=== PATIENT | male | born 1970 | race Caucasian/White ===

== ENCOUNTER 2024-09-03 08:22 | Emergency (ER) | payer OTHER, SELFPAY ==
[2024-09-03 08:31] VITALS: BP 170/101
--- NOTE | 2024-09-03 11:01 | ED.GENMED ---
History of Present Illness
General
Chief Complaint: Back Pain
Source: patient
Exam Limitations: none
Time Seen by Provider: 09/03/24 10:49
History of Present Illness
History of Present Illness:
Low back pain this started about 4 days ago. Seem to get better however instantly got worse with coughing on . Points to the right lower back. No numbness tingling or weakness. No bowel or bladder issues. No fever. No abdominal
pain. No urinary symptoms. Very positional in nature.
Past History
Past History
ED Past Medical History: None
ED Past Surgical History: Cholecystectomy
Review of Systems
Review of Systems
All Other Systems: Not applicable
Constitutional: Denies fever
Phy Exam
Physical Exam
Physical Exam:
GENERAL: Alert and oriented in no apparent distress
EYE: Orbits normal.
NECK: Supple
CARDIAC: Regular rate and rhythm
LUNGS: No respiratory distress
ABDOMEN: Soft, without focal tenderness or distention
NEUROLOGICAL: Alert and oriented , grossly non-focal
SKIN: Warm and dry, no rash or lesion, no discoloration, skin intact.
MUSCULOSKELETAL: No edema,no deformity.Good color. No spinal tenderness. Area of pain is right sacroiliac area. However no point tenderness. Able to stand but winces with sitting up. Able to ambulate. Able to walk on toes. Decreased flexion
of the hip. Negative straight leg raising. Good distal pulses and color. Good lower extremity strength.
PSYCH: Normal and appropriate interaction.
Course
Orders/Labs/Results
Orders:
Orders
09/03/24 11:00
Ketorolac [Toradol] 30 mg IM NOW STA
09/03/24 11:15
Urinalysis Reflex To Culture Urgent
Date Specimen was Collected: 09/03/24
Time Specimen was Collected: 11:09
Vital Signs
Initial and Last Documented VS:
Initial Vital Signs
Temp BP Pulse Ox
97.8 F 170/101 97
09/03/24 08:31 09/03/24 08:31 09/03/24 08:31
Last Documented Vital Signs
Temp Pulse Resp BP Pulse Ox
97.8 F 67 18 156/95 97
09/03/24 08:31 09/03/24 11:47 09/03/24 11:47 09/03/24 11:47 09/03/24 11:47
MDM/Problems Addressed
Differential Diagnosis Includes:
Clinically this is musculoskeletal back pain. No indication for radiologic imaging. Will check a urinalysis for completeness. Plan is muscle relaxers pain medications anti-inflammatories and follow-up
*Pulse Oximetry
Patient hypoxic: no
*Critical Care Note
Total Time (30-74mins, 75-104mins- exclusive of procedures): Not Applicable
ED Attending Note
-
Portions of this chart may have been created with voice recognition software.� Occasional wrong word or��sound alike� substitutions may have occurred due to the inherent limitations of voice recognition software.
Discharge Plan
Departure
Patient Disposition: Home (Routine Discharge)
Date of Disposition: 09/03/24
Time of Disposition: 11:59
Patient with high blood pressure during this ER visit?: Yes
Discharge Problem:
Low back strain
Instructions: Low Back Pain (DC), BLOOD PRESSURE
Prescriptions:
New
cyclobenzaprine 10 mg tablet
10 mg PO TID PRN (Reason: muscle spasm) Qty: 14 0RF
hydrocodone-acetaminophen 5-300 mg tablet
1 tab PO Q4H PRN (Reason: Pain) Qty: 14 0RF
Referrals:
Jane Chandler MD [Family Provider] -
Activity Restrictions/Additional Instructions:
The prescriptions were sent to your pharmacy
Start with Advil Motrin or Aleve. You can then add the muscle relaxer.
Understand if you also add the Vicodin, the Vicodin and the muscle relaxer can make you groggy
Interventions
Interventions:
*Risk Screen - Suicide Last Done: 09/03/24 08:40
*General Assessment Last Done: 09/03/24 11:03
*Neglect/Abuse Screening Last Done: 09/03/24 11:03
*ED COVID-19 Vaccine History Last Done: 09/03/24 11:03
*Nursing Disposition Last Done: 09/03/24 12:33
ED-Musculoskeletal Assessment Last Done: 09/03/24 11:03
Discharge Date and Time
Discharge Date/Time: 09/03/24 12:34
Print Language: [id number]
[2024-09-03] MEDS: TORADOL 30 MG IM (11:13)
[2024-09-03 11:41] LABS: Urine Albumin Negative (Neg - Trace); Urine Bilirubin Negative (Negative); Urine Character Clear (Clear); Urine Color Yellow; Urine Glucose Negative (Negative); Urine Ketone Negative (Negative); Urine Leukocyte Negative (Negative); Urine Nitrite Negative (Negative); Urine Occult Blood Negative (Negative); Urine Urobilinogen Negative (Neg - 1+)
[2024-09-03 11:47] VITALS: BP 156/95
== END 2024-09-03 12:34 | disposition home or self-care (01) ==
LOC: EMR 08:22
PROVIDERS: EMERGENCY PHYSICIAN Emergency Medicine; FAMILY PHYSICIAN Internal Medicine
DX: S39.012A Strain of muscle, fascia and tendon of lower back, initial encounter (principal); X58.XXXA Exposure to other specified factors, initial encounter; R03.0 Elevated blood-pressure reading, without diagnosis of hypertension; Z90.49 Acquired absence of other specified parts of digestive tract; Z88.0 Allergy status to penicillin
CPT/HCPCS: 99284; 96372; 81003